=== PATIENT | female | born 1970 | race Caucasian/White ===

== ENCOUNTER 2021-08-21 08:02 | Inpatient (IN) | payer OTHER ==
[~2021-08-21] VITALS: Ht 162.6 cm; Wt 63.5 kg
[2021-08-21 08:59] LABS: BASOPHILS ABSOLUTE AUTO 0.06 K/mm3 (0.00-0.23); BASOPHILS PERCENT AUTO 1 % (0-2); EOSINOPHILS ABSOLUTE AUTO 1.68 K/mm3 (0.00-0.68); EOSINOPHILS PERCENT AUTO 16 % (0-6); Hemoglobin 20.4 g/dL (11.5-16.0); IMMATURE GRAN ABSOLUTE AUTO 0.02 K/mm3 (0.00-0.10); IMMATURE GRAN PERCENT AUTO 0 % (0-1); LYMPHOCYTES ABSOLUTE AUTO 2.77 K/mm3 (0.84-5.20); LYMPHOCYTES PERCENT AUTO 27 % (21-46); MONOCYTES ABSOLUTE AUTO 0.85 K/mm3 (0.16-1.47); MONOCYTES PERCENT AUTO 8 % (4-13); Mean Corpuscular HGB 35.1 pg (26.0-34.0); Mean Corpuscular HGB Conc 35.1 g/dL (31.5-36.5); Mean Corpuscular Volume 100 fL (80-100); Mean Platelet Volume 10.5 fL (9.1-12.4); NEUTROPHILS ABSOLUTE AUTO 5.04 K/mm3 (1.96-9.15); NEUTROPHILS PERCENT AUTO 48 % (41-73); Platelet Count 275 K/mm3 (150-400); RDW Coefficient Variation 12.8 % (11.7-14.2); RDW Standard Deviation 47.4 fL (35.1-46.3); Red Blood Cell Count 5.82 M/mm3 (3.80-5.20); White Blood Cell Count 10.42 K/mm3 (4.00-11.30)
[2021-08-21 09:01] LABS: Hematocrit 58.1 % (33.0-51.0)
[2021-08-21 09:52] LABS: Alanine Aminotransfer (ALT/SGP 24 U/L (12-78); Albumin, Blood 3.8 g/dL (3.4-5.0); Albumin/Globulin Ratio 0.9 (0.8-1.8); Alk Phos 103 U/L (50-136); Anion Gap 10 mmol/L (6-16); Aspartate Aminotrans (AST/SGOT 24 U/L (12-37); Bilirubin, Total 0.6 mg/dL (0.1-1.0); Blood Urea Nitrogen 8 mg/dL (8-24); Bun/Creatinine Ratio 10.2 (12.0-20.0); CO2, Blood 24 mmol/L (21-32); Calcium, Blood 9.3 mg/dL (8.5-10.1); Chloride, Blood 101 mmol/L (98-108); Creatinine, Blood 0.79 mg/dL (0.40-1.00); Globulin, Blood 4.3 g/dL (2.2-4.0); Glomerular Filtration Rate >60 (60-); Glucose, Blood 93 mg/dL (70-99); Sodium, Blood 135 mmol/L (136-145); Total Protein, Blood 8.1 g/dL (6.4-8.2); Troponin I <0.015 ng/mL (0.000-0.040)
[2021-08-21 10:00] LABS: Adenovirus Not Detected (NOT DETECT); Bordetella pertussis Not Detected (NOT DETECT); Chlamydophila pneumoniae Not Detected (NOT DETECT); Coronavirus 229E Not Detected (NOT DETECT); Coronavirus HKU1 Not Detected (NOT DETECT); Coronavirus NL63 Not Detected (NOT DETECT); Coronavirus OC43 Not Detected (NOT DETECT); Human Metapneumovirus Not Detected (NOT DETECT); Human Rhinovirus/Enterovirus Not Detected (NOT DETECT); Influenza A/2009-H1 Not Detected (NOT DETECT); Influenza A/H1 Not Detected (NOT DETECT); Influenza A/H3 Not Detected (NOT DETECT); Influenza B Not Detected (NOT DETECT); Mycoplasma pneumoniae Not Detected (NOT DETECT); Parainfluenza Virus 1 Not Detected (NOT DETECT); Parainfluenza Virus 2 Not Detected (NOT DETECT); Parainfluenza Virus 3 Not Detected (NOT DETECT); Parainfluenza Virus 4 Not Detected (NOT DETECT); Respiratory Syncytial Virus Not Detected (NOT DETECT); SARS-Cov-2 (COVID-19), BioFire Not Detected (NOT DETECT)
--- NOTE | 2021-08-21 16:36 | NUR ---
ADMIT NOTE 51 YR F ADMITTED WITH SOB R/T POSSIBLE COPD EXACERBATION. REPORT REVIEVED FROM JOVANI CRUZ. PT ARRIVED VIA GURNEY AND AMBULATED TO BED. SHE IS A&O AND ANSWERES QUESTIONS APPROPRIATELY. PT ORIENTED TO ROOM, CALL LIGHT SYSTEM, BED CONTROLS, TV, REVIEWED SAFETY AND FALL PRECAUTIONS. PT VERBALIZED UNDERSTANDING. ADMISSION HX, HOME MED AND ASSESMENT COMPLETED.
--- NOTE | 2021-08-21 18:17 | NUR ---
SHIFT SUMMARY 51 Y F ADMITTED THIS AFERNOON WITH SOB POSSIBLE R/T TO *NEW DX* OF COPD. PT HAS REMAINED SOB W/ EXERTION AND AFTER COUGHING. INSTRUCED PT ON PURSED LIP BREATHING TO SLOW RESP RATE DOWN AFTER COUGHING. PT IS WAS ON 3L O2 VIA N/C BUT WAS INCREASED TO 6L VIA N/C AFTER DESATTING INTO 80'S WITH COUGHING. PT IS ON TELE WITH SINUS TACH IN THE 130'S. MD AWARE AND NEW ORDERS REVIEVED TO INCREASE IVF TO 175 FOR A BOLUS TO SEE IF HR IMPROVES. PT IS ON CIWA CHECKS AND HAS BEEN 4 T/O THIS SHIFT.PT IS PLEASANT AND COOPERATIVE WIHT CARE AND CALLS APPROPRIATELY.
--- NOTE | 2021-08-21 22:33 | NUR ---
2039: Lab called, pt's lactic is 3.5. notified. No new orders at this time.
--- NOTE | 2021-08-22 04:08 | NUR ---
BP ELEVATED, PROVIDER NOTIFIED, BLOOD CULTURES AND UA ORDERED.
[2021-08-22 04:38] LABS: BASOPHILS ABSOLUTE AUTO 0.01 K/mm3 (0.00-0.23); BASOPHILS PERCENT AUTO 0 % (0-2); EOSINOPHILS PERCENT AUTO 0 % (0-6); Hematocrit 52.1 % (33.0-51.0); Hemoglobin 18.1 g/dL (11.5-16.0); IMMATURE GRAN ABSOLUTE AUTO 0.03 K/mm3 (0.00-0.10); IMMATURE GRAN PERCENT AUTO 0 % (0-1); LYMPHOCYTES ABSOLUTE AUTO 0.55 K/mm3 (0.84-5.20); LYMPHOCYTES PERCENT AUTO 7 % (21-46); MONOCYTES ABSOLUTE AUTO 0.09 K/mm3 (0.16-1.47); MONOCYTES PERCENT AUTO 1 % (4-13); Mean Corpuscular HGB 34.6 pg (26.0-34.0); Mean Corpuscular HGB Conc 34.7 g/dL (31.5-36.5); Mean Corpuscular Volume 100 fL (80-100); Mean Platelet Volume 10.9 fL (9.1-12.4); NEUTROPHILS ABSOLUTE AUTO 7.53 K/mm3 (1.96-9.15); NEUTROPHILS PERCENT AUTO 92 % (41-73); Platelet Count 259 K/mm3 (150-400); RDW Coefficient Variation 12.8 % (11.7-14.2); RDW Standard Deviation 47.6 fL (35.1-46.3); Red Blood Cell Count 5.23 M/mm3 (3.80-5.20); White Blood Cell Count 8.21 K/mm3 (4.00-11.30)
[2021-08-22 04:57] LABS: Alanine Aminotransfer (ALT/SGP 17 U/L (12-78); Albumin, Blood 3.6 g/dL (3.4-5.0); Albumin/Globulin Ratio 0.9 (0.8-1.8); Alk Phos 92 U/L (50-136); Anion Gap 9 mmol/L (6-16); Aspartate Aminotrans (AST/SGOT 17 U/L (12-37); Bilirubin, Total 0.6 mg/dL (0.1-1.0); Blood Urea Nitrogen 9 mg/dL (8-24); Bun/Creatinine Ratio 13.5 (12.0-20.0); CO2, Blood 25 mmol/L (21-32); Calcium, Blood 9.3 mg/dL (8.5-10.1); Chloride, Blood 102 mmol/L (98-108); Creatinine, Blood 0.67 mg/dL (0.40-1.00); Glomerular Filtration Rate >60 (60-); Glucose, Blood 146 mg/dL (70-99); Potassium, Blood 3.5 mmol/L (3.5-5.5); Sodium, Blood 136 mmol/L (136-145); Total Protein, Blood 7.6 g/dL (6.4-8.2)
--- NOTE | 2021-08-22 06:09 | NUR ---
END OF SHIFT REPORT: Pt saing >94% on 6LNC. She reports SOB only with activity. Pt is still tachycardic. MD aware. Pt's lactics were critical x3. MD notified. UA and blood cultures ordered. Pt has been 6-8 on CIWA overnight. Medicated per eMAR. Pt reports no needs at this time. Call light within reach.
[2021-08-22 06:53] LABS: Source, Urine Clean Catch
[2021-08-22 06:55] LABS: Appearance, Urine Clear (Clear); Bilirubin, Urine Neg (Neg); Blood, Urine Neg (Neg); Color, Urine Yellow (P-Yellow); Glucose Qualitative, Urine Neg (Neg); Ketones, Urine Neg (Neg); Leukocyte Esterase, Urine Neg (Neg); Nitrite, Urine Neg (Neg); Protein, Urine Neg (Neg); Specific Gravity, Urine 1.005 (1.003-1.022); Urobilinogen, Urine NORM (Normal)
--- NOTE | 2021-08-22 18:18 | NUR ---
PATIENT A&OX4 STABLE AT THIS TIME CIWA ASSESSMENT EARLIER THIS SHIFT 12 PATIENT MEDICATED PER PRN ORDERS WITH EFFECTIVENESS PATIENT CALM PLEASANT UP TO SHOWER VERBALIZES FEELING BETTER CARDIAC MONITIORIN MAINTAINED PATIENT REMAINS ST 120'S DENIES CHEST PAIN REMAINS ON O2 @ 6L NC SATS >91% MOD SOB/MEYER NOTED RESP EVEN UNLABORED AT REST UP ADEQUATE PO INTAKE NO S/S DISTRESS NOTED WILL CONT TO MONITOR
[2021-08-23 05:14] LABS: BASOPHILS ABSOLUTE AUTO 0.01 K/mm3 (0.00-0.23); BASOPHILS PERCENT AUTO 0 % (0-2); EOSINOPHILS PERCENT AUTO 0 % (0-6); Hematocrit 47.4 % (33.0-51.0); Hemoglobin 16.1 g/dL (11.5-16.0); IMMATURE GRAN ABSOLUTE AUTO 0.09 K/mm3 (0.00-0.10); IMMATURE GRAN PERCENT AUTO 1 % (0-1); LYMPHOCYTES ABSOLUTE AUTO 0.55 K/mm3 (0.84-5.20); LYMPHOCYTES PERCENT AUTO 3 % (21-46); MONOCYTES ABSOLUTE AUTO 0.35 K/mm3 (0.16-1.47); MONOCYTES PERCENT AUTO 2 % (4-13); Mean Corpuscular HGB 34.6 pg (26.0-34.0); Mean Corpuscular Volume 102 fL (80-100); Mean Platelet Volume 11.2 fL (9.1-12.4); NEUTROPHILS ABSOLUTE AUTO 15.02 K/mm3 (1.96-9.15); NEUTROPHILS PERCENT AUTO 94 % (41-73); Platelet Count 258 K/mm3 (150-400); RDW Coefficient Variation 13.1 % (11.7-14.2); RDW Standard Deviation 49.1 fL (35.1-46.3); Red Blood Cell Count 4.65 M/mm3 (3.80-5.20); White Blood Cell Count 16.02 K/mm3 (4.00-11.30)
[2021-08-23 05:30] LABS: Anion Gap 6 mmol/L (6-16); Blood Urea Nitrogen 9 mg/dL (8-24); Bun/Creatinine Ratio 14.3 (12.0-20.0); CO2, Blood 25 mmol/L (21-32); Calcium, Blood 8.7 mg/dL (8.5-10.1); Chloride, Blood 107 mmol/L (98-108); Creatinine, Blood 0.63 mg/dL (0.40-1.00); Glomerular Filtration Rate >60 (60-); Glucose, Blood 145 mg/dL (70-99); Magnesium, Blood 2.3 mg/dL (1.6-2.4); Potassium, Blood 3.5 mmol/L (3.5-5.5); Sodium, Blood 138 mmol/L (136-145)
--- NOTE | 2021-08-23 05:53 | NUR ---
CASINO HOST SUMMARY ADMITTED FOR COPD EXACERBATION. PT IS A FULL CODE. PT TITRATED DOWN TO 2L BY NC AT REST DUE TO SATURATING AROUND 95% ON 3L. PT STILL SOB WITH DECREASING SATURATION WHEN UP TO RESTROOM - O2 INCREASED TO 3L BY NC WITH EXERTION. PT REPORTED FEELING ANXIOUS AND HAD CIWA OF 9 AT MIDNIGHT - GIVEN 2 MG OF ORAL ATIVAN. PT THEN SLEPT ALL NIGHT WITH NO ANXIETY OR CONCERNS.
[2021-08-23] MEDS ORDERED: ACET325 PO (09:23)
[2021-08-23] MEDS ORDERED: ALBU90OI INH (09:24)
[2021-08-23] MEDS ORDERED: AZIT500 PO (09:25)
[2021-08-23] MEDS ORDERED: BENZ100A PO (09:25)
[2021-08-23] MEDS ORDERED: GUAI600T33 PO (09:33)
[2021-08-23] MEDS ORDERED: HYDR10 PO (09:35)
[2021-08-23] MEDS ORDERED: COMBIVENT RESPIM4 G1 INH (09:36)
[2021-08-23] MEDS ORDERED: Prednisone10 MG PO (09:37)
[2021-08-23] MEDS ORDERED: VISBIOME 112.51 EACH PO (09:38)
[2021-08-23] MEDS ORDERED: LORA.5 PO (12:39)
--- NOTE | 2021-08-23 15:04 | NUR ---
PATIENT A&OX4 UP AD ALLA INDEPENDENT WITH ADL'S WITH SET UP REMAINS WITH SOB/MEYER HOWEVER SATS REMAIN >90% WITH ACTIVITY ON RA PATIENT VERBALIZS OVERALL FEELING BETTER NO CHEST PAIN PATIENT TO BE DISCHARGED TO HOME ORDERED ALL DISCHARGE INSTRUCTIONS/PAPERWORK PROVIDED INCLUDING MEDICATIONS DISEASE PROCESS MANAGEMENT AND FOLLOW UP PATIENT VERBALIZES GOOD UNDERSTANDING PATIENT CALM NO ANXIETY AT THIS TIME WAITING ON TO BUSINESS ANALYST [employer] TO TRANSPORT HOME IN PERSONAL VEHICLE
--- NOTE | 2021-08-23 15:29 | NUR ---
PATIENT DISCHARGED TRANSPORTED OFF OF UNIT VIA WHEELCHAIR BY THIS NURSE NO PAIN NO S/S DISTRESS NOTED PATIENT TRANSPORTED HOME BY IN PERSONAL VEHICLE PATIENT DISCHARGED WITH ALL OF HER PERSONAL BELONGINGS
== END 2021-08-23 15:32 | disposition home or self-care (01) | DRG 871 ==
LOC: ER 08:02 → MEDS 13:24 → ENPENDDIS 14:12 → MEDS 14:26
PROVIDERS: Emergency Medicine; Internal Medicine; Nurse Practitioner Acute Care; ADMIT Family Medicine
DX: A41.9 Sepsis, unspecified organism (principal); J96.21 Acute and chronic respiratory failure with hypoxia; J96.22 Acute and chronic respiratory failure with hypercapnia; J44.1 Chronic obstructive pulmonary disease with (acute) exacerbation; F41.9 Anxiety disorder, unspecified; F32.9 Major depressive disorder, single episode, unspecified; G47.00 Insomnia, unspecified; Z87.891 Personal history of nicotine dependence; J20.8 Acute bronchitis due to other specified organisms
CPT/HCPCS: 0202U; 36415; 71045; 80048; 80053; 81003; 83605; 83735; 83880; 84145; 84484; 85025; 87040; 93005; 93010; 94640; 94644; 94761; 94762; 96374; 99284-25; A9270; J0360; J1650; J2930; J3411; J3475; J7042; J7120

== ENCOUNTER → 2021-09-18 | Outpatient (CLI) | payer OTHER ==
[~2021-09-18] MED LIST: ACET325 PO; ALBU90OI INH; AZIT500 PO; BENZ100A PO; COMBIVENT RESPIM4 G1 INH; GUAI600T33 PO; HYDR10 PO; LORA.5 PO; Prednisone10 MG PO; VISBIOME 112.51 EACH PO
[2021-09-22 13:08] LABS: HPV 16 Negative (Negative); HPV 18 Negative (Negative); HPV OTHER HR TYPES Positive (Negative)
== END | disposition home or self-care (01) ==
LOC: LAB SHORT 14:30 → LAB 14:30
PROVIDERS: Family Medicine
DX: Z01.419 Encounter for gynecological examination (general) (routine) without abnormal findings (principal)
CPT/HCPCS: 87624; 87625; G0123